=== PATIENT | male | born 2000 | race African-American/Black ===

== ENCOUNTER 2019-06-30 09:32 | Emergency (ER) | payer SELFPAY ==
[~2019-06-30] VITALS: Ht 177.8 cm; Wt 98.9 kg
[2019-06-30] MEDS: IV NORMAL SALINE 1000ML BAG 1,000 ML IV ONE (10:00)
[2019-06-30] MEDS ORDERED: ONDA4TAB12 PO (10:14)
--- NOTE | 2019-06-30 10:14 | PHYS DOC ---
Adult General Chief Complaint Chief Complaint: NAUSEA/VOMITING/DIARRHA HPI HPI Patient is a 18 year old male who presents with nausea, vomiting, diarrhea that has been ongoing since midnight. The patient states he was getting up to the bathroom multiple times about the night. He states he had chili dogs last night for dinner and other people who have had that food have also had overnight symptoms. Denies any pain at this time. Review of Systems Review of Systems Constitutional: Denies fever or chills [] Eyes: Denies change in visual acuity, redness, or eye pain [] HENT: Denies nasal congestion or sore throat [] Respiratory: Denies cough or shortness of breath [] Cardiovascular: No additional information not addressed in HPI [] GI: Reports nausea, vomiting, diarrhea, Denies abdominal pain : Denies dysuria or hematuria [] Musculoskeletal: Denies back pain or joint pain [] Integument: Denies rash or skin lesions [] Neurologic: Denies headache, focal weakness or sensory changes [] Endocrine: Denies polyuria or polydipsia [] Complete systems were reviewed and found to be within normal limits, except as documented in this note. Current Medications Current Medications Current Medications Medications (Trade) Dose Ordered Sig/Liza Start Time Stop Time Status Last Admin Dose Admin Albuterol/ Ipratropium (Duoneb) 3 ml 1X ONCE 06/30/19 10:15 06/30/19 10:21 DC 06/30/19 10:15 3 ML Ondansetron HCl (Zofran) 4 mg 1X ONCE 06/30/19 10:15 06/30/19 10:21 DC 06/30/19 10:15 4 MG Sodium Chloride 1,000 ml @ 1,000 mls/hr 1X STAT 06/30/19 10:56 06/30/19 11:55 DC 06/30/19 11:19 1,000 MLS/HR Allergies Allergies Allergies Coded Allergies Type Severity Reaction Last Updated Verified No Known Drug Allergies 06/30/19 No Physical Exam Physical Exam Constitutional: Well developed, well nourished, no acute distress, non-toxic appearance. [] HENT: Normocephalic, atraumatic, bilateral external ears normal, oropharynx moist, no oral exudates, nose normal. [] Eyes: PERRLA, EOMI, conjunctiva normal, no discharge. [] Neck: Normal range of motion, no tenderness, supple, no stridor. [] Cardiovascular:Heart rate regular rhythm, no murmur Lungs & Thorax: Bilateral breath sounds have wheezing in left lower lobe. Abdomen: Soft, no tenderness, no masses, no pulsatile masses. [] Skin: Warm, dry, no erythema, no rash. [] Back: No tenderness, no CVA tenderness. [] Neurologic: Alert and oriented X 3, normal motor function, normal sensory function, no focal deficits noted. [] Psychologic: Affect normal, judgement normal, mood normal. [] Current Patient Data Vital Signs Vital Signs Date Time Temp Pulse Resp B/P (MAP) Pulse Ox O2 Delivery O2 Flow Rate FiO2 06/30/19 12:25 98 136/62 (86) 100 Room Air 06/30/19 11:30 17 06/30/19 09:50 99.0 99.0 Lab Values Laboratory Tests Test 06/30/19 10:00 06/30/19 10:40 White Blood Count 9.4 x10^3/uL (4.0-11.0) Red Blood Count 6.11 x10^6/uL (4.30-5.70) H Hemoglobin 18.5 g/dL (13.0-17.5) H Hematocrit 54.3 % (39.0-53.0) H Mean Corpuscular Volume 89 fL (79-100) Mean Corpuscular Hemoglobin 30 pg (25-35) Mean Corpuscular Hemoglobin Concent 34 g/dL (31-37) Red Cell Distribution Width 13.4 % (11.5-14.5) Platelet Count 287 x10^3/uL (140-400) Neutrophils (%) (Auto) 90 % (31-73) H Lymphocytes (%) (Auto) 4 % (24-48) L Monocytes (%) (Auto) 6 % (0-9) Eosinophils (%) (Auto) 0 % (0-3) Basophils (%) (Auto) 0 % (0-3) Neutrophils # (Auto) 8.5 x10^3/uL (1.8-7.7) H Lymphocytes # (Auto) 0.3 x10^3/uL (1.0-4.8) L Monocytes # (Auto) 0.6 x10^3/uL (0.0-1.1) Eosinophils # (Auto) 0.0 x10^3/uL (0.0-0.7) Basophils # (Auto) 0.0 x10^3/uL (0.0-0.2) Segmented Neutrophils % 76 % (35-66) H Band Neutrophils % 9 % (0-9) Lymphocytes % 2 % (24-48) L Atypical Lymphocytes % (Manual) 1 % (0-0) H Monocytes % 12 % (0-10) H Platelet Estimate Adequate (ADEQUATE) Sodium Level 141 mmol/L (136-145) Potassium Level 3.9 mmol/L (3.5-5.1) Chloride Level 104 mmol/L (98-107) Carbon Dioxide Level 25 mmol/L (21-32) Anion Gap 12 (6-14) Blood Urea Nitrogen 16 mg/dL (8-26) Creatinine 1.2 mg/dL (0.7-1.3) Estimated GFR (Cockcroft-Gault) 93.4 BUN/Creatinine Ratio 13 (6-20) Glucose Level 120 mg/dL (70-99) H Calcium Level 9.2 mg/dL (8.5-10.1) Total Bilirubin 0.7 mg/dL (0.2-1.0) Aspartate Amino Transferase (AST) 26 U/L (15-37) Alanine Aminotransferase (ALT) 33 U/L (16-63) Alkaline Phosphatase 88 U/L (46-116) Total Protein 8.9 g/dL (6.4-8.2) H Albumin 4.2 g/dL (3.4-5.0) Albumin/Globulin Ratio 0.9 (1.0-1.7) L Laboratory Tests 06/30/19 10:00 Laboratory Tests 06/30/19 10:40 EKG EKG [] Radiology/Procedures Radiology/Procedures [] Course & Med Decision Making Course & Med Decision Making Pertinent Labs and Imaging studies reviewed. (See chart for details) Appears to have developed food poisoning due to the chili dogs last night. Will get labs, and give fluids, and nausea medication. Labs are unremarkable. Will d/c home with Zomisty. Latosha Disclaimer Latosha Disclaimer This electronic medical record was generated, in whole or in part, using a voice recognition dictation system. Departure Departure Impression: Primary Impression: Nausea & vomiting Additional Impression: Diarrhea Disposition: HOME, SELF-CARE Condition: STABLE Referrals: NO PCP (PCP) Patient Instructions: Food Poisoning Additional Instructions: Thank you for visiting [facility]. We appreciate you trusting us with your care. If any additional problems come up don't hesitate to return to visit us. Please follow up with your primary care provider so they can plan additional care if needed and know about the problem that you had. If symptoms worsen come back to the Emergency Department. Any concerning symptoms that start such as chest pain, shortness of air, weakness or numbness on one side of the body, running high fevers or any other concerning symptoms return to the ER. Please fill your medications at any pharmacy and follow the prescription instructions. Scripts Ondansetron (ONDANSETRON ODT) 4 Mg Tab.rapdis 1 TAB PO PRN Q6-8HRS PRN for NAUSEA, #16 TAB Prov: VADIM GRANADOS APRN 06/30/19 Problem Qualifiers Primary Impression: Nausea & vomiting Vomiting type: unspecified Vomiting Intractability: unspecified Qualified Codes: R11.2 - Nausea with vomiting, unspecified Additional Impression: Diarrhea Diarrhea type: unspecified type Qualified Codes: R19.7 - Diarrhea, unspecified VADIM GRANADOS APRN Jun 30, 2019 10:14
[2019-06-30] MEDS: ONDANSETRON PF 4 MG/2 ML VIAL. IV ONE (10:15)
[2019-06-30] MEDS: IPRATRPIUM/ALBUTEROL 0.5/2.5MG 3 ML NEBU. NEB ONE (10:15)
[2019-06-30 10:19] LABS: BASO % 0 % (0-3); EOS % 0 % (0-3); HEMATOCRIT 54.3 % (39.0-53.0); HEMOGLOBIN 18.5 g/dL (13.0-17.5); LYMPH # 0.3 x10^3/uL (1.0-4.8); LYMPH % 4 % (24-48); MEAN CORPUSCULAR HEMOGLOBIN 30 pg (25-35); MEAN CORPUSCULAR HGB CONC 34 g/dL (31-37); MEAN CORPUSCULAR VOLUME 89 fL (79-100); MONO # 0.6 x10^3/uL (0.0-1.1); MONO % 6 % (0-9); NEUT # 8.5 x10^3/uL (1.8-7.7); NEUT % 90 % (31-73); PLATELET COUNT 287 x10^3/uL (140-400); RED BLOOD COUNT 6.11 x10^6/uL (4.30-5.70); RED CELL DISTRIBUTION WIDTH 13.4 % (11.5-14.5); WHITE BLOOD COUNT 9.4 x10^3/uL (4.0-11.0)
[2019-06-30 10:57] LABS: CALCIUM 9.2 mg/dL (8.5-10.1); CREATININE 1.2 mg/dL (0.7-1.3); GFR 93.4; POTASSIUM 3.9 mmol/L (3.5-5.1)
[2019-06-30 11:03] LABS: ALBUMIN 4.2 g/dL (3.4-5.0); ALBUMIN/GLOBULIN RATIO 0.9 (1.0-1.7); TOTAL BILIRUBIN 0.7 mg/dL (0.2-1.0); TOTAL PROTEIN 8.9 g/dL (6.4-8.2)
[2019-06-30] MEDS: IV NORMAL SALINE 1000ML BAG 1,000 ML IV STA (11:19)
[2019-06-30 12:25] VITALS: BP 136/62
[2019-06-30 13:17] LABS: % ATYL 1 % (0-0); % BANDS 9 % (0-9); % LYMPHS 2 % (24-48); % MONOS 12 % (0-10); % SEGS 76 % (35-66); PLT ESTIMATE ADEQUATE (ADEQUATE)
== END 2019-06-30 12:20 | disposition home or self-care (01) ==
LOC: ER 09:32
DX: R11.2 Nausea with vomiting, unspecified (principal); R19.7 Diarrhea, unspecified
CPT/HCPCS: 36415; 80053; 85007; 85025; 94640; 96361; 96374; 99285; J2405; J7030; J7620

== ENCOUNTER 2021-04-19 02:15 | Emergency (ER) | payer SELFPAY ==
[~2021-04-19] VITALS: Ht 180.3 cm; Wt 109.1 kg
[~2021-04-19 02:15] MED LIST: ONDA4TAB12 PO
--- NOTE | 2021-04-19 02:32 | PHYS DOC ---
Past Medical History Past Medical History: Asthma Past Surgical History: No Surgical History Smoking Status: Current Every Day Smoker Alcohol Use: Rarely Drug Use: Marijuana General Adult EDM: Chief Complaint: ASTHMA HPI: HPI: Patient is a 20-year-old male presenting for asthma exacerbation. This is a known issue for him, has longstanding history of asthma that is well controlled with rescue inhaler only. States he only uses rescue inhaler letter rarely but admits for past 72 hours having increased wheezing and symptoms requiring rescue inhaler use. States he forgot his inhaler at family member's house today and has not been able to use it at all. Was trying to fall asleep but ongoing wheezing and inability to catch breath prompted him to come in with mother for evaluation. He has history of asthma exacerbations in the past, last was 6 years ago requiring hospitalization. He has never been intubated. No other reportable medical conditions, no other medications on a daily basis, he is up-to-date on all immunizations but NOT against COVID-19. He does smoke cigarettes which also exacerbates his symptoms, no alcohol or other illicit drug use. On arrival, he just reports ongoing tightness in chest, shortness of breath and wheeze Review of Systems: Review of Systems: Fourteen body systems of review of systems have been reviewed. See HPI for pertinent positives and negative responses, other graf all other systems are negative, non-pertinent or non-contributory Heart Score: C/O Chest Pain: No Risk Factors: Risk Factors: DM, Current or recent (<one month) smoker, HTN, HLP, family history of CAD, obesity. Risk Scores: Score 0 - 3: 2.5% MACE over next 6 weeks - Discharge Home Score 4 - 6: 20.3% MACE over next 6 weeks - Admit for Clinical Observation Score 7 - 10: 72.7% MACE over next 6 weeks - Early Invasive Strategies Allergies: Allergies: Allergies Coded Allergies Type Severity Reaction Last Updated Verified No Known Drug Allergies 06/30/19 No Physical Exam: PE: Constitutional: Well developed, well nourished, in moderate respiratory distress with audible wheezing evident without auscultation HENT: Normocephalic, atraumatic, bilateral external ears normal, oropharynx moist, no oral exudates, nose normal. Eyes: PERRLA, EOMI, conjunctiva normal, no discharge. Neck: Normal range of motion, no tenderness, supple, no stridor. Cardiovascular: Heart rate regular, sinus rhythm, no murmurs rubs or gallops Lungs & Thorax: In moderate respiratory distress with accessory muscle use and neck noted, increased work of breathing noted with global wheezing present and audible even without auscultation of the lungs Abdomen: Bowel sounds normal, soft, no tenderness, no masses, no pulsatile masses. Nonsurgical abdomen, no peritoneal signs Skin: Warm, dry, no erythema, no rash. Back: No tenderness, no CVA tenderness. Extremities: No tenderness, no cyanosis, no clubbing, ROM intact, no edema. Neurologic: Alert and oriented X 3, grossly normal motor & sensory function, no focal deficits noted. Psychologic: Affect normal, judgement normal, mood normal. EKG: EKG: [] Radiology/Procedures: Radiology/Procedures: [] Course & Med Decision Making: Course & Med Decision Making ABCs unremarkable HPI, physical exam and comprehensive ER work-up nonconcerning for any emergent or surgical issues Patient presenting for classic acute exacerbation of asthma. Symptoms responded with DuoNeb and albuterol treatments with steroids while in ER. Markedly improved in appearance, on physical exam and reported per patient Patient is unvaccinated, I spent extensive time educating him on need for vaccination of COVID-19. Mother requesting Covid swab given uncertainty of patient contact which I feel is appropriate, swab taken and pending results Strict return precautions discussed with good understanding by patient and mother who is there bedside, all questions and concerns addressed prior to ER department Dragon Disclaimer: Latosha Disclaimer: This electronic medical record was generated, in whole or in part, using a voice recognition dictation system. Departure Departure Impression: Primary Impression: Asthma exacerbation Additional Impression: Person under investigation for COVID-19 Disposition: HOME / SELF CARE / HOMELESS Condition: STABLE Referrals: NO PCP (PCP) Additional Instructions: You were seen for an asthma exacerbation. Your exacerbation was likely caused by a recent change in weather versus viral URI. Any new medications today, please take those as prescribed as well. It may take a few days for the steroids to begin to work, but use albuterol as needed for the next few days to help with symptoms. Please follow-up with your primary care provider to review the ER visit today and ensure symptomatic resolution. I highly recommend you get vaccinated for COVID-19 given your comorbid risk factor of asthma Return to the ED if you develop worsening cough, shortness of breath, fever > 101, chest pain, or any other new or concerning symptoms. You need to follow up with your primary care doctor as soon as possible as a severe asthma exacerbation can be fatal. Scripts Albuterol Sulfate (PROAIR HFA INHALER) 8.5 Gm Hfa.aer.ad 1 PUFF INH PRN Q6HRS PRN for SHORTNESS OF BREATH, #1 EACH 0 Refills Prov: PATRICIA HAWKINS DO 04/19/21 Prednisone (PREDNISONE) 50 Mg Tablet 1 TAB PO DAILY, #5 TAB Prov: PATRICIA HAWKINS DO 04/19/21 PATRICIA HAWKINS DO Apr 19, 2021 02:32
[2021-04-19] MEDS ORDERED: predniSONE 20 MG TABLET PO ONE (03:00)
[2021-04-19] MEDS ORDERED: IPRATRPIUM/ALBUTEROL 0.5/2.5MG 3 ML NEBU. NEB ONE (03:00)
--- NOTE | 2021-04-19 03:36 | RAD ---
EXAM: AP View of the chest DATE: 04/19/2021 3:15 AM INDICATION: Reason: SHOB / Spl. Instructions: / History: COMPARISON: No Prior FINDINGS: The heart is not enlarged. Mediastinal and hilar contours are normal. Patchy opacities medial left lung base likely atelectasis or developing consolidation. No pleural effusion or pneumothorax. IMPRESSION: Patchy opacities medial left lung base likely atelectasis or developing consolidation. Electronically signed by: Shaq Christianson MD (04/19/2021 3:34 AM) TIERNEY
[2021-04-19] MEDS ORDERED: ALBUTEROL SULFATE 2.5 MG/3 ML NEBU. NEB ONE (04:30)
[2021-04-19] MEDS ORDERED: PRED50TA PO (04:52)
[2021-04-19] MEDS ORDERED: ALBU2.5V8 INH (04:52)
[2021-04-19 04:54] VITALS: BP 149/68
--- NOTE | 2021-04-19 16:11 | NUR ---
IP: Attempted to notify patient of negative COVID19 test result. Voicemail message to please return call at number provided.
--- NOTE | 2021-04-20 09:43 | NUR ---
IP: Attempted to notify patient of negative COVID19 test result. Voicemail message to please return call at number provided.
== END 2021-04-19 05:02 | disposition home or self-care (01) ==
LOC: ER 02:15
DX: J45.901 Unspecified asthma with (acute) exacerbation (principal); Z20.822 Contact with and (suspected) exposure to COVID-19; F17.200 Nicotine dependence, unspecified, uncomplicated
CPT/HCPCS: 71045; 94640; 99285; J7512; J7613; U0003; U0005